=== PATIENT | female | born 1985 | race Two or more races ===

== ENCOUNTER 2021-05-12 17:04 | Observation (INO) | payer MEDICAID, OTHER ==
[2021-05-12] MEDS ORDERED: PREN-96 PO (19:10)
== END 2021-05-12 19:34 | disposition home or self-care (01) ==
LOC: LDRP 17:04
PROVIDERS: ADMIT Obstetrics & Gynecology; ATTEND Obstetrics & Gynecology
DX: O62.9 Abnormality of forces of labor, unspecified (principal); O99.891 Other specified diseases and conditions complicating pregnancy; M54.50 Low back pain, unspecified; Z3A.32 32 weeks gestation of pregnancy
CPT/HCPCS: 59025; 81002; 84112; G0378; G0379; Q0114

== ENCOUNTER 2024-12-14 20:14 | Emergency (ER) | payer MEDICAID ==
[~2024-12-14] VITALS: Ht 154.9 cm; Wt 233.0 kg
[~2024-12-14 20:14] MED LIST: PREN-96 PO
[2024-12-14] MEDS: SODIUM CHLORIDE 0.9% 1,000 ML IV ONE (20:30)
[2024-12-14] MEDS: diphenhdrAMINE HCL 50 MG/1 ML VL IV ONE (20:30)
--- NOTE | 2024-12-14 20:56 | ED.PDOC ---
HPI (NEURO) HPI Comments 39 year old female presents to the ED with a chief complaint of headache onset 2 days. Patient states she began experiencing headache 2 days ago, noticed pain worsened gradually, also began experiencing generalized weakness, noticed pain worsened with light and sounds. Patient has experienced headaches like this in the past, but not as severe. PMHx HTN and gastric bypass surgery approximately 1.5 months ago. Denies nausea, vomiting, abdominal pain, chest pain, dizziness, fever, chills, vision changes focal numbness/weakness. No head trauma. No recent illness otherwise. No other symptoms or modifying factors present at this time. 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 Family History Family History: Reviewed,noncontributory to illness, No family hx of Cancer, No family hx of DM, No family hx of Heart molly, No family hx of HTN, No family hx ofKidney molly, No family hx of Liver molly, No family hx of Lung molly, No family hx of Stroke Social History Smoker: Non-Smoker Alcohol: Denies ETOH Use Drugs: Denies Drug Use Lives In: Home Constitutional: denies: chills, diaphoresis, fatigue, fever, malaise, sweats, weakness, others EENTM: reports: photophobia; denies: blurred vision, double vision, ear bleeding, ear discharge, ear drainage, ear pain, ear ringing, eye pain, eye redness, hearing loss, mouth pain, mouth swelling, nasal discharge, nose bleeding, nose congestion, nose pain, tearing, throat pain, throat swelling, voice changes, others Respiratory: denies: cough, hemoptysis, orthopnea, SOB at rest, shortness of breath, SOB with excertion, stridor, wheezing, others Cardiovascular: denies: chest pain, dizzy spells, diaphoresis, Dyspnea on exer tion, edema, irregular heart beat, left arm pain, lightheadedness, palpitations, PND, syncope, others Gastrointestinal: denies: abdomen distended, abdominal pain, blood streaked bowels, constipated, diarrhea, dysphagia, difficulty swallowing, hematemesis, melena, nausea, poor appetite, poor fluid intake, rectal bleeding, rectal pain, vomiting, others Genitourinary: denies: abnormal vagina bleeding, burning, dyspareunia, dysuria, flank pain, frequency, hematuria, incontinence, pain, , vagina discharge, urgency, others Neurological: reports: headache; denies: dizziness, fainting, left sided numbness, left sided weakness, numbness, paresthesia, pre-existing deficit, r ight sided numbness, right sided weakness, seizure, speech problems, tingling, tremors, weakness, others Musculoskeletal: denies: back pain, gout, joint pain, joint swelling, muscle pain, muscle stiffness, neck pain, others Integumetry: denies: bruises, change in color, change in hair/nails, dryness, laceration, lesions, lumps, rash, wounds, others Allergic/Immunocompromised: denies: Difficulty Healing, Frequent Infections, Hives, Itching, others Hematologic/Lymphatic: denies: anemia, blood clots, easy bleeding, easy bruising, swollen glands, others Endocrine: denies: excessive hunger, excessive sweating, excessive thirst, excessive urination, flushing, intolerance to cold, intolerance to heat, unexplained weight gain, unexplained weight loss, others Psychiatric: denies: anxiety, bipolar disorder, depression, hopeless, panic disorder, schizophrenia, sleepless, suicidal, others All Other Systems: Reviewed and Negative Physical Exam General Appearance: Normal HEENT: Normal ENT Inspection, Pharynx Normal, TMs Normal Neck: Full Range of Motion, Non-Tender, Normal, Normal Inspection Respiratory: Chest Non-Tender, Lungs Clear, No Accessory Muscle Use, No Respiratory Distress, Normal Breath Sounds Cardiovascular: No Edema, No JVD, No Murmur, No Gallop, Normal Peripheral Pulses, Regular Rate/Rhythm Breast Exam: Deferred Gastrointestinal: No Organomegaly, Non Tender, No Pulsatile Mass, Normal Bowel Sounds, Soft Genitalia: Deferred Pelvic: Deferred Rectal: Deferred Extremities: No calf tenderness, Normal capillary refill, Normal inspection, Normal range of motion, Non-tender, No pedal edema Musculoskeletal : Apperance: Normal Neurologic: Alert, antique finisher II-XII nml as Tested, No Motor Deficits, Normal Affect, Normal Mood, No Sensory Deficits, Other (5/5 strength in bilateral upper and lower extremities, sensation intact to light touch throughout, ambulating with a steady gait without assistance, normal [id number], no pronator drift) Cerebellar Function: Normal Reflexes: Normal Skin: Dry, Normal Color, Warm Lymphatic: No Adenopathy Was a procedure done? Was a procedure done?: No Differential Diagnosis (SZ) Headache: Other (Tension headache, migraine, subarachnoid hemorrhage, IIH, eclampsia, closed head injury) X-Ray, Labs, Meds, VS Vital Signs Date Time Temp Pulse Resp B/P (MAP) Pulse Ox O2 Delivery O2 Flow Rate FiO2 12/14/24 20:15 97.5 69 18 134/75 97 97.5 X-Ray, Labs, Meds, VS Comment Patient presents with a history of headache most likely related to benign etiology such as migraine with symptomatic control achieved in the emergency department. On history no high risk features such as AM temporal component, persistent nausea/vomiting, sudden thunderclap in onset, changes in vision, jaw claudication, seizure. Patient to be discharged home with symptomatic management, avoidance of headache triggers and close follow up with primary care provider for referral to neurology as indicated. Counseled patient to maintain headache journal to assist with identification of triggers. Reviewed supportive care and return precautions including, but not limited to fever > 100.4, severe headache, vision changes, numbness, weakness, PO intolerance. Patient is in agreement with the plan and all questions answered. Considered SAH, meningitis /encephalitis, stroke, space-occupying lesion, GCA, acute angle closure glaucoma, vascular dissection, CVT, IIH, PRES, carbon monoxide poisoning, preeclampsia/eclampsia, but consider these to be less likely based on history/physical/evaluation as above. Time of 1ST Reevaluation: 21:15 Reevaluation 1ST: Unchanged Time of 2ND Reevaluation: 21:27 Reevaluation 2ND: Improved Patient Education/Counseling: Diagnosis, Treatment, Prognosis Family Education/Counseling: No Family Present Departure 1 Departure Time of Disposition: 21:28 Impression: Primary Impression: Migraine Disposition: 01 HOME / SELF CARE / HOMELESS Condition: Stable e-Prescriptions Acetaminophen (Tylenol) 325 Mg Tb 650 MG PO Q6HPRN PRN for 5 Days, #20 TAB Prov: LUL SELBY MD 12/14/24 Discharged With: Self Critical Care Note Critical Care Time?: No Stability Stability form required: No Heart Score Heart Score: Heart Score Response (Comments) Value History N/A 0 EKG N/A 0 Age N/A 0 Risk Factors N/A 0 Troponin N/A 0 Total 0 I personally scribed for LUL SELBY MD ([email or web address]) on 12/14/24 at 20:56. El ectronically submitted by Loida Wolfe ([email or web address]). LUL SELBY MD Dec 14, 2024 20:56
[2024-12-14] MEDS ORDERED: ACET-1079 PO (21:23)
[2024-12-15] MEDS: KETOROLAC TROMETH 30 MG/ML 1ML VIAL IV ONE (02:27)
[2024-12-15] MEDS: PROCHLORPERAZINE EDISYLATE 5 MG/ML 2ML VIAL IV ONE (02:27)
[2024-12-15 02:32] VITALS: BP 134/75; TEMP 97.5
[2024-12-15 02:33] VITALS: PULSE 69; RESP 18; O2SAT 97
== END 2024-12-15 02:37 | disposition home or self-care (01) ==
LOC: ER 20:14
DX: G43.909 Migraine, unspecified, not intractable, without status migrainosus (principal); I10 Essential (primary) hypertension; Z98.84 Bariatric surgery status; Z98.51 Tubal ligation status
CPT/HCPCS: 81025; 96374; 96375; 99284; J0780; J1885